=== PATIENT | female | born 1940 | race Caucasian/White ===

== ENCOUNTER 2016-09-19 18:07 | Observation (INO) | payer MEDICARE ==
[~2016-09-19] VITALS: Ht 160 cm; Wt 73.2 kg
== END 2016-09-21 16:30 | disposition home or self-care (01) ==
LOC: ER 18:07 → MED 23:48
PROVIDERS: ADMIT Internal Medicine
DX: K25.4 Chronic or unspecified gastric ulcer with hemorrhage (principal); D62 Acute posthemorrhagic anemia; K44.9 Diaphragmatic hernia without obstruction or gangrene; I10 Essential (primary) hypertension; I48.0 Paroxysmal atrial fibrillation; J43.9 Emphysema, unspecified; Z88.5 Allergy status to narcotic agent; Z88.8 Allergy status to other drugs, medicaments and biological substances; Z79.01 Long term (current) use of anticoagulants; Z79.899 Other long term (current) drug therapy; Z98.890 Other specified postprocedural states
CPT/HCPCS: 36415; 96374; 96376; G0378; J2704

== ENCOUNTER 2016-09-19 18:07 | Emergency (ER) | payer MEDICARE | END 2016-09-19 23:47 | disposition critical access hospital (66) | LOC: ER 18:07 | DX: K92.2 Gastrointestinal hemorrhage, unspecified (principal); I48.91 Unspecified atrial fibrillation; I10 Essential (primary) hypertension; Z79.01 Long term (current) use of anticoagulants; Z79.899 Other long term (current) drug therapy; Z88.5 Allergy status to narcotic agent; Z88.8 Allergy status to other drugs, medicaments and biological substances | CPT/HCPCS: 96361; 96374; 96375 ==

== ENCOUNTER 2016-10-14 11:27 | Emergency (ER) | payer MEDICARE | END 2016-10-14 13:36 | disposition home or self-care (01) | LOC: ER 11:27 | DX: I44.0 Atrioventricular block, first degree (principal); N39.0 Urinary tract infection, site not specified; I48.91 Unspecified atrial fibrillation; I10 Essential (primary) hypertension; M19.90 Unspecified osteoarthritis, unspecified site; K27.9 Peptic ulcer, site unspecified, unspecified as acute or chronic, without hemorrhage or perforation; Z79.899 Other long term (current) drug therapy; Z88.8 Allergy status to other drugs, medicaments and biological substances; Z88.5 Allergy status to narcotic agent | CPT/HCPCS: 36415 ==